=== PATIENT | male | born 1930 | race Caucasian/White ===

== ENCOUNTER → 2021-10-09 | Outpatient (CLI) | payer MEDICARE ==
[~2021-10-09] MED LIST: CATAPRES 0.1MG0.1 MG PO; ELIQUIS5 MG PO; HYDROCHLOROTHIA25 MG PO; JANUVIA50 MG PO; LUTEIN20 MG PO; METFORMIN HCL1000 MG PO; METOPROLOL SUC100 MG PO; MULTI-VITAMIN1 EACH PO; TYLENOL 325MG325 MG PO; VALSARTAN320 MG PO
== END ==
LOC: OPSV 10:00
DX: D50.0 Iron deficiency anemia secondary to blood loss (chronic) (principal)
CPT/HCPCS: 96365; J1756

== ENCOUNTER → 2021-10-11 | Outpatient (CLI) | payer MEDICARE | LOC: OPSV 12:51 | DX: D50.0 Iron deficiency anemia secondary to blood loss (chronic) (principal); K90.9 Intestinal malabsorption, unspecified | CPT/HCPCS: 96365; J1756 ==

== ENCOUNTER → 2021-10-18 | Outpatient (CLI) | payer MEDICARE | LOC: OPSV 13:00 | DX: D50.0 Iron deficiency anemia secondary to blood loss (chronic) (principal); K90.9 Intestinal malabsorption, unspecified | CPT/HCPCS: 96365; J1756 ==

== ENCOUNTER → 2021-10-20 | Outpatient (CLI) | payer MEDICARE ==
[~2021-10-20] VITALS: Ht 188 cm; Wt 85.3 kg
== END ==
LOC: OPSV 10:53
DX: D50.0 Iron deficiency anemia secondary to blood loss (chronic) (principal); K90.9 Intestinal malabsorption, unspecified
CPT/HCPCS: 96365; J1756

== ENCOUNTER → 2021-10-23 | Outpatient (CLI) | payer MEDICARE ==
[~2021-10-23] VITALS: Ht 185.4 cm; Wt 78.0 kg
== END ==
LOC: OPSV 13:00
DX: D50.0 Iron deficiency anemia secondary to blood loss (chronic) (principal); K90.9 Intestinal malabsorption, unspecified
CPT/HCPCS: 96365; J1756

== ENCOUNTER 2021-12-03 00:01 | Inpatient (IN) | payer MEDICARE ==
[~2021-12-03] VITALS: Ht 188 cm; Wt 77.6 kg
[~2021-12-03 00:01] MED LIST changes: -METOPROLOL SUC100 MG PO; -VALSARTAN320 MG PO
[2021-12-03 01:31] LABS: HEMOGLOBIN 7.7 gm/dl (14.0-17.5); RED BLOOD COUNT 2.82 M/UL (4.20-5.50); WHITE BLOOD COUNT 28.4 K/UL (4.5-11.0)
[2021-12-03 01:58] LABS: BUN/CREATININE RATIO 44 (0-10)
[2021-12-03] MEDS ORDERED: LASIX20 MG PO (13:04)
[2021-12-03] MEDS ORDERED: FLOMAX0.4 MG PO (13:05)
[2021-12-03] MEDS ORDERED: ALDACTONE25 MG PO (13:05)
[2021-12-03] MEDS ORDERED: FERROUS SULFAT325 M2 PO (13:06)
[2021-12-03] MEDS ORDERED: JARDIANCE10 MG PO (13:06)
[2021-12-03] MEDS ORDERED: COLACE100 MG PO (13:07)
[2021-12-03] MEDS ORDERED: VITAMIN C 500500 MG PO (13:07)
[2021-12-03] MEDS ORDERED: TYLENOL EXTRA500 MG PO (13:08)
[2021-12-03] MEDS ORDERED: TRESIBA100 UNIT/1 SC (13:18)
[2021-12-03] MEDS ORDERED: AMMONIUM LACTA140 GM TOP (13:26)
[2021-12-03 14:58] LABS: ACINETOBACTER BAUMANNII Not Detected (Negative); CANDIDA ALBICANS Not Detected (Negative); CANDIDA KRUSEI Not Detected (Negative); CANDIDA TROPICALIS Not Detected (Negative); ENTEROCOCCUS Not Detected (Negative); ESCHERICHIA COLI Not Detected (Negative); HAEMOPHILUS INFLUENZAE Not Detected (Negative); KLEBSIELLA OXYTOCA Not Detected (Negative); KLEBSIELLA PNEUMONIAE Not Detected (Negative); KPC-CARBAPENEM-RESISTANCE GENE Not Detected (Negative); PROTEUS Not Detected (Negative); PSEUDOMONAS AERUGINOSA Not Detected (Negative); SERRATIA MARCESANS Not Detected (Negative); STAPHYLOCOCCUS Not Detected (Negative); STAPHYLOCOCCUS AUREUS Not Detected (Negative); STREP AGALACTIAE (GROUP B) Not Detected (Negative); mecA (METHICILLIN RESIST GENE Not Detected (Negative); vanA/B (VANCOMYCIN RESIST GENE Not Detected (Negative)
[2021-12-03 14:59] LABS: STREP PYOGENES (GROUP A) DETECTED (Negative); STREPTOCOCCUS DETECTED (Negative)
[2021-12-03] MEDS ORDERED: VALSARTAN160 MG PO (17:19)
[2021-12-03] MEDS ORDERED: TOPROL XL50 MG PO (17:20)
[2021-12-04 04:57] LABS: HEMOGLOBIN 7.8 gm/dl (14.0-17.5); RED BLOOD COUNT 2.92 M/UL (4.20-5.50); WHITE BLOOD COUNT 27.9 K/UL (4.5-11.0)
[2021-12-04 05:15] LABS: BUN/CREATININE RATIO 42 (0-10)
[2021-12-05 05:34] LABS: HEMOGLOBIN 8.2 gm/dl (14.0-17.5); RED BLOOD COUNT 2.93 M/UL (4.20-5.50); WHITE BLOOD COUNT 19.3 K/UL (4.5-11.0)
[2021-12-05 05:43] LABS: BUN/CREATININE RATIO 37 (0-10)
[2021-12-06 03:19] LABS: HEMOGLOBIN 7.6 gm/dl (14.0-17.5); RED BLOOD COUNT 2.81 M/UL (4.20-5.50)
[2021-12-06 03:42] LABS: WHITE BLOOD COUNT 11.9 K/UL (4.5-11.0)
[2021-12-07 06:42] LABS: HEMOGLOBIN 8.5 gm/dl (14.0-17.5); RED BLOOD COUNT 3.04 M/UL (4.20-5.50); WHITE BLOOD COUNT 12.4 K/UL (4.5-11.0)
[2021-12-08 04:48] LABS: HEMOGLOBIN 8.9 gm/dl (14.0-17.5); RED BLOOD COUNT 3.27 M/UL (4.20-5.50)
[2021-12-08 04:52] LABS: WHITE BLOOD COUNT 19.7 K/UL (4.5-11.0)
[2021-12-09 07:47] LABS: HEMOGLOBIN 7.9 gm/dl (14.0-17.5)
[2021-12-09 08:01] LABS: RED BLOOD COUNT 2.93 M/UL (4.20-5.50); WHITE BLOOD COUNT 12.2 K/UL (4.5-11.0)
[2021-12-10 03:34] LABS: HEMOGLOBIN 8.4 gm/dl (14.0-17.5); RED BLOOD COUNT 3.06 M/UL (4.20-5.50); WHITE BLOOD COUNT 13.2 K/UL (4.5-11.0)
[2021-12-11 06:32] LABS: HEMOGLOBIN 7.7 gm/dl (14.0-17.5); RED BLOOD COUNT 2.83 M/UL (4.20-5.50); WHITE BLOOD COUNT 12.1 K/UL (4.5-11.0)
[2021-12-12 06:29] LABS: HEMOGLOBIN 8.1 gm/dl (14.0-17.5); RED BLOOD COUNT 2.99 M/UL (4.20-5.50); WHITE BLOOD COUNT 12.1 K/UL (4.5-11.0)
[2021-12-13 02:41] LABS: HEMOGLOBIN 8.3 gm/dl (14.0-17.5); RED BLOOD COUNT 2.94 M/UL (4.20-5.50); WHITE BLOOD COUNT 12.2 K/UL (4.5-11.0)
[2021-12-14 04:35] LABS: HEMOGLOBIN 8.6 gm/dl (14.0-17.5); RED BLOOD COUNT 3.14 M/UL (4.20-5.50)
[2021-12-14 04:42] LABS: WHITE BLOOD COUNT 17.3 K/UL (4.5-11.0)
[2021-12-14 16:56] LABS: HEMOGLOBIN 8.4 gm/dl (14.0-17.5); RED BLOOD COUNT 3.03 M/UL (4.20-5.50); WHITE BLOOD COUNT 14.8 K/UL (4.5-11.0)
[2021-12-15 02:48] LABS: HEMOGLOBIN 8.7 gm/dl (14.0-17.5); RED BLOOD COUNT 3.12 M/UL (4.20-5.50); WHITE BLOOD COUNT 14.8 K/UL (4.5-11.0)
[2021-12-15 08:15] LABS: HBSAG SCREEN Negative (Negative); HEP A AB, IGM Negative (Negative); HEP B CORE AB, IGM Negative (Negative); HEP C VIRUS AB <0.1 (0.0-0.9)
[2021-12-15 11:15] LABS: ANTISTREPTOLYSIN O AB 854.9 IU/mL (0.0-200.0); COMPLEMENT C3, SERUM 150 mg/dL (82-167); COMPLEMENT C4, SERUM 29 mg/dL (12-38)
[2021-12-15 13:15] LABS: ANTI-DSDNA ANTIBODIES 15 IU/mL (0-9)
[2021-12-15 14:15] LABS: A/G RATIO 0.7 (0.7-1.7); ALPHA-1-GLOBULIN 0.4 g/dL (0.0-0.4); BETA GLOBULIN 0.7 g/dL (0.7-1.3); GAMMA GLOBULIN 1.2 g/dL (0.4-1.8); GLOBULIN, TOTAL 3.3 g/dL (2.2-3.9); IMMUNOGLOBULIN A, QN, SERUM 285 mg/dL (61-437); IMMUNOGLOBULIN G, QN, SERUM 1180 mg/dL (603-1613); IMMUNOGLOBULIN M, QN, SERUM 209 mg/dL (15-143); M-SPIKE Not Observed g/dL (Not Observed); PROTEIN, TOTAL, SERUM 5.3 g/dL (6.0-8.5)
[2021-12-16 05:37] LABS: HEMOGLOBIN 8.1 gm/dl (14.0-17.5); RED BLOOD COUNT 2.9 M/UL (4.20-5.50); WHITE BLOOD COUNT 13.5 K/UL (4.5-11.0)
[2021-12-17 03:37] LABS: HEMOGLOBIN 7.5 gm/dl (14.0-17.5); RED BLOOD COUNT 2.7 M/UL (4.20-5.50); WHITE BLOOD COUNT 11.1 K/UL (4.5-11.0)
[2021-12-18 02:51] LABS: HEMOGLOBIN 7.4 gm/dl (14.0-17.5); RED BLOOD COUNT 2.6 M/UL (4.20-5.50); WHITE BLOOD COUNT 11.9 K/UL (4.5-11.0)
--- NOTE | 2021-12-18 11:09 | NUR ---
patient on bladder area distended and was tender to touch. bladder scan performed with 1000+ when scanned. will report to
[2021-12-19 06:50] LABS: HEMOGLOBIN 7.7 gm/dl (14.0-17.5); RED BLOOD COUNT 2.82 M/UL (4.20-5.50); WHITE BLOOD COUNT 9.7 K/UL (4.5-11.0)
[2021-12-19 08:19] LABS: ANTIMYELOPEROXIDASE (MPO) ABS <9.0 U/mL (0.0-9.0); ANTIPROTEINASE 3 (PR-3) ABS <3.5 U/mL (0.0-3.5); ATYPICAL PANCA >1:640 titer (Neg:<1:20); CYTOPLASMIC (C-ANCA) <1:20 titer (Neg:<1:20); PERINUCLEAR (P-ANCA) <1:20 titer (Neg:<1:20)
[2021-12-19] MEDS ORDERED: ASPIRIN EC81 MG PO (11:06)
[2021-12-19] MEDS ORDERED: POLYETHYLENE GL17 GM PO (11:06)
[2021-12-19] MEDS ORDERED: CHRONULAC20 GM/30 M PO (11:06)
[2021-12-19] MEDS ORDERED: HUMALOG 10100 UNITS/ SC (11:06)
[2021-12-19] MEDS ORDERED: HEPARIN SO5000 UNIT2 SC (11:06)
[2021-12-19] MEDS ORDERED: ATORVASTATIN CA10 MG PO (11:06)
[2021-12-19] MEDS ORDERED: PROTONIX 40 MG40 M1 PO (11:06)
[2021-12-19] MEDS ORDERED: HYDROCODON-ACE1 EAC4 PO (11:12)
--- NOTE | 2021-12-19 15:08 | NUR ---
report given to [facility] admitting nurse @[phone] and request to leave iv sites in placed.
[2021-12-19] MEDS ORDERED: ROCEPHIN IM/I2000 MG IM (16:17)
[2021-12-19] MEDS ORDERED: VICODIN HP 10-1 EACH PO (16:17)
== END 2021-12-19 21:30 | DRG 871 ==
LOC: ER1 00:01 → PROG CARE 08:13 → M/S 08:13 → CDU 08:13 → PROG CARE 16:49 → M/S 12-06 18:05
PROVIDERS: Internal Medicine; Internal Medicine Nephrology; Physician Assistant Medical; Student in an Organized Health Care Education/Training Program; ADMIT Internal Medicine
PROC: 3E03329 Introduction of Other Anti-infective into Peripheral Vein, Percutaneous Approach (ICD-10-PCS; principal; 2021-12-03)
PROC: 3E033XZ Introduction of Vasopressor into Peripheral Vein, Percutaneous Approach (ICD-10-PCS; 2021-12-03)
DX: A40.0 Sepsis due to streptococcus, group A (principal); R65.21 Severe sepsis with septic shock; N17.0 Acute kidney failure with tubular necrosis; L03.116 Cellulitis of left lower limb; I48.20 Chronic atrial fibrillation, unspecified; Z20.822 Contact with and (suspected) exposure to COVID-19; E87.2 Acidosis; K92.2 Gastrointestinal hemorrhage, unspecified; K80.20 Calculus of gallbladder without cholecystitis without obstruction; D50.9 Iron deficiency anemia, unspecified; C61 Malignant neoplasm of prostate; I07.1 Rheumatic tricuspid insufficiency; I27.20 Pulmonary hypertension, unspecified; Z66 Do not resuscitate; E11.22 Type 2 diabetes mellitus with diabetic chronic kidney disease; N18.9 Chronic kidney disease, unspecified; I12.9 Hypertensive chronic kidney disease with stage 1 through stage 4 chronic kidney disease, or unspecified chronic kidney disease; M32.14 Glomerular disease in systemic lupus erythematosus; L89.322 Pressure ulcer of left buttock, stage 2; I87.8 Other specified disorders of veins; K59.00 Constipation, unspecified; N40.0 Benign prostatic hyperplasia without lower urinary tract symptoms; Z85.038 Personal history of other malignant neoplasm of large intestine; Z79.84 Long term (current) use of oral hypoglycemic drugs; Z98.890 Other specified postprocedural states; Z85.828 Personal history of other malignant neoplasm of skin; Z79.899 Other long term (current) drug therapy; Z80.42 Family history of malignant neoplasm of prostate
CPT/HCPCS: ECHO; 36415; 70450; 71045; 72125; 74018; 80048; 80053; 80061; 80074; 80202; 80307; 81001; 82043; 82550; 82553; 82570; 82607; 82728; 82746; 82784; 82803; 82962; 83520; 83540; 83550; 83605; 83690; 83735; 83880; 83883; 84100; 84155; 84156; 84165; 84484; 85025; 85027; 85610; 85652; 85730; 86038; 86060; 86140; 86160; 86225; 86256; 86334; 87040; 87077; 87150; 87186; 89050; 93005; 93306; 96374; 96375; 96376; 97110-GP-CQ; 97116; 97161; 97530; 97530-GP-CQ; 99285; A6212; C9113; J0692; J0696; J1644; J1756; J3370; J7030; J7070; P9047; Q9967; U0002